=== PATIENT | female | born 1995 | race Caucasian/White ===

== ENCOUNTER → 2023-02-15 16:42 | Outpatient (BNVA) | payer SELFPAY | PROVIDERS: PCP Nurse Practitioner Family; Visit Provider Nurse Practitioner Family | DX: Z96.642 Presence of left artificial hip joint (principal); T81.49XA Infection following a procedure, other surgical site, initial encounter; Y83.8 Other surgical procedures as the cause of abnormal reaction of the patient, or of later complication, without mention of misadventure at the time of the procedure | CPT/HCPCS: 87070; 87075; 87077; 87184; 87205 ==

== ENCOUNTER 2023-02-16 14:03 | Emergency (ER) | payer SELFPAY ==
[2023-02-16] VITALS (14 sets, daily range): BP systolic 116–137; BP diastolic 72–93; PULSE 53–77; RESP 15–17; TEMP 36.4–36.6; O2SAT 92–100; BMI 30.1
--- NOTE | 2023-02-16 14:15 | CT_ITS ---
WS: [id number] TECHNIQUE: with coronal and sagittal reformatted images. CLINICAL INFORMATION: postop wound infection COMPARISON: None. DLP: 450.[address] scans at [facility] use at least one of these dose optimization techniques: automated e xposure control; mA and/or kV adjustment per patient size (includes targeted exams where dose is matc hed to clinical indication); or iterative reconstruction. FINDINGS: No prior imaging or preoperative imaging available Extensive postoperative changes LEFT acetabular repair with LEFT NERY. Comminuted healing fracture wit h callus formation involving the LEFT superior and inferior pubic rami. Slightly enlarged reactive LE FT inguinal lymph nodes. Fluid with mineralization along the surgical corridor and left hip soft tiss ues. Associated peripheral mineralization. Findings may be due to postoperative seroma versus infecti on. Grade 1 anterolisthesis L5 on S1 chronic spondylolysis. Endplate erosive changes L5-S1 may be degener ative or due to prior discitis. Severe bilateral foraminal narrowing. IMPRESSION: 1. Previous postoperative changes complex LEFT acetabular repair with LEFT NERY. 2. Comminuted healing superior-inferior pubic rami fractures with callus formation. 3. Low-attenuation fluid collection in the LEFT hip soft tissues and about the greater trochanter wi th thick walled capsule and calcifications along the surgical tract may represent postoperative serom a versus superimposed infection. 4. Few slightly prominent likely reactive LEFT inguinal lymph nodes. Notified Dr Sandra 4at 02/16/2023 3:29 PM.
--- NOTE | 2023-02-16 14:19 | ECG_ITS ---
[facility] Test Date: 2023-02-16 Pat Name: Crystal Finney Department: Room: Gender: Female Internal Communications Intern: : 1995 Requested By: Ezra Campbell Order Number: [id number] Huma MD: Joce Macario M.D. Measurements Intervals [place] Rate: 89 P: 60 MO: 119 QRS: 134 QRSD: 90 T: 39 QT: 404 QTc: 493 Interpretive Statements SINUS RHYTHM WITH SHORT MO INTERVAL RIGHT AXIS DEVIATION [QRS AXIS > 100] No previous ECG available for comparison Electronically Signed On 02-17-2023 7:59:46 CDT by Joce Macario M.D. [id number]
--- NOTE | 2023-02-16 14:21 | ED_ITS ---
Documented by User: He Sandra DO 02/16/23 18:12 HPI - General Adult General: Chief complaint: General Medical Stated complaint: n/v, hip surgery 3weeks ago Time Seen by Provider: 02/16/23 14:05 [facility] ED [facility]: Medical History (Updated 02/16/23 @ 18:12 by He Sandra DO) Neurogenic bladder Spina bifida Surgical History (Updated 02/16/23 @ 18:12 by He Sandra DO) H/O Spinal surgery History of foot surgery History of left hip replacement August 2022 Social History Smoking and tobacco status: current every day smoker e-cigarettes E-Cigarette Details: vaporizer device and with nicotine Second hand smoke exposure: Yes Alcohol intake: never Substance/Drug Use: current Substance/Drug use frequency: daily Course Vital Signs: Vital signs: Vital Signs Temperature 97.8 F 02/16/23 17:56 Pulse Rate 56 L 02/16/23 17:54 Respiratory Rate 17 02/16/23 14:04 Blood Pressure 126/79 02/16/23 17:54 Pulse Oximetry 100 02/16/23 17:54 Oxygen Delivery Me thod Room Air 02/16/23 17:54 MDM - General Adult Medical Decision Making Vitals are stable here. Patient is afebrile. White blood cell count is 18. 88% neutrophils. Lactic is normal at 2. CRP is only 11.7 but sed rate is significantly elevated at 57. CT of the left hip is pending. Patient has received morphine, Zofran, IV fluid. The patient is also received IV Zosyn and vancomycin after blood cultures. I have spoken with our orthopedic surgeon. This patient has a complex hip arthroplasty with acetabular cage placement. There is concern over complication with the surgery such that if hardware revision were to be needed, pelvic involvement could be an issue. Suggestion is made for university level reconstructive/pelvic orthopedics. I spoke with the team at [facility]. They are willing to take in transfer. This patient is medically stable at this point. No more vomiting here. She is mildly nauseated. She has gotten pain medication and antiemetic here. We will have her set up for ground transfer when a bed at [facility] is available. Lab Data 02/16/23 14:20 02/16/23 14:20 Laboratory Results WBC 17.91 10^3/uL (3.29-11.43) H 02/16/23 14:20 RBC 4.87 10^6/uL (3.85-5.65) 02/16/23 14:20 Hgb 12.20 g/dL (11.27-16.99) 02/16/23 14:20 Hct 38.5 % (36-47) 02/16/23 14:20 MCV 79.1 fl (85-98) L 02/16/23 14:20 MCH 25.1 pg (27-33) L 02/16/23 14:20 MCHC 31.7 g/dL (30-55) 02/16/23 14:20 RDW 18.2 % (12.1-15.1) H 02/16/23 14:20 Plt Count 917 10^3/cmm (157-399) H 02/16/23 14:20 MPV 8.2 fL (7.4-10.4) 02/16/23 14:20 Neut % (Auto) 87.6 % 02/16/23 14:20 Lymph % (Auto) 9.3 % 02/16/23 14:20 [place] % (Auto) 2.0 % 02/16/23 14:20 Eos % (Auto) 0.1 % 02/16/23 14:20 Baso % (Auto) 0.6 % 02/16/23 14:20 Neut # (Auto) 15.70 10^3/uL (1.8-7.7) H 02/16/23 14:20 Lymph # (Auto) 1.7 10^3/uL (0.8-4.8) 02/16/23 14:20 [place] # (Auto) 0.4 10^3/uL (0.2-0.9) 02/16/23 14:20 Eos # (Auto) 0.0 10^3/uL (0.0-0.8) 02/16/23 14:20 Baso # (Auto) 0.1 10^3/uL (0.0-0.1) 02/16/23 14:20 Nucleated RBC % (auto) 0 % 02/16/23 14:20 Nucleated RBCs # 0.0 /100WBC 02/16/23 14:20 ESR 57 mm/hr (0-15) H 02/16/23 14:20 Sodium 136 mmol/L (136-145) 02/16/23 14:20 Potassium 3.9 mmol/L (3.5-5.1) 02/16/23 14:20 Chloride 102 mmol/L (98-107) 02/16/23 14:20 Carbon Dioxide 19 mmol/L (22-29) L 02/16/23 14:20 Anion Gap 18.9 (5-19) 02/16/23 14:20 BUN 8 mg/dL (6-20) 02/16/23 14:20 Creatinine 0.6 mg/dL (0.5-0.9) 02/16/23 14:20 GFR Calculation 119.9 mL/min (90-130) 02/16/23 14:20 Glucose 155 mg/dL (65-115) H 02/16/23 14:20 Calculated Osmolality 283 mOsm/kg (285-295) L 02/16/23 14:20 Lactic Acid 2.1 mmol/L (0.5-2.2) 02/16/23 14:20 Lactic Acid (Sepsis) 2.1 mmol/L (0.5-2.2) 02/16/23 17:24 Calcium 9.4 mg/dL (8.5-10.5) 02/16/23 14:20 Total Bilirubin 0.5 mg/dL (0.15-1.2) 02/16/23 14:20 AST 13 U/L (0-32) 02/16/23 14:20 ALT 8 U/L (0-33) 02/16/23 14:20 Alkaline Phosphatase 150 U/L (35-105) H 02/16/23 14:20 C-Reactive Protein 11.7 mg/L (0.0-4.9) H 02/16/23 14:20 Total Protein 8.0 g/dL (6.6-8.7) 02/16/23 14:20 Albumin 4.1 g/dL (3.5-5.2) 02/16/23 14:20 Globulin 3.9 g/dL (1.3-4.6) 02/16/23 14:20 All radiology interpretation(s) finalized by discharge Discharge Plan Discharge Patient Disposition: Xfer Short-Term Hosp Clinical Impression: Surgical site infection, History of left hip replacement Condition: Fair Prescriptions: No Action buspirone 5 mg tablet 5 mg PO BID hydroxyzine pamoate 50 mg capsule 50 mg PO DAILY gabapentin 300 mg capsule 900 mg PO TID sulfamethoxazole-trimethoprim [Bactrim DS] 800-160 mg tablet 1 tab PO BID 10 Days Qty: 20 0RF Referrals: Scarlet Lara FNP [Primary Care Provider] - Coding Level of Care Code ED Feather Stitcher for Chg Fwd Documented by User: [email or web address] Schuler 02/16/23 14:35 HPI - General Adult General: Chief complaint: General Medical Stated complaint: n/v, hip surgery 3weeks ago Time Seen by Provider: 02/16/23 14:05 Source: patient Mode of arrival: wheelchair Limitations: physical limitation History of Present Illness: Patient is a 27 year old female who presents to the ED with Left hip pain, weakness, chills, and fever. Patient reports that she under went hip surgery back in August 2022 in [place] from a fall. Patient states there have been complications from the surgery and her last revision of the left hip occured around 3 weeks ago. Patient report recent visit yesterday to here nearest clinic and was placed on Sulfa. Reports fever, n/v, chills, and increased left hip pain started this am. Denies and alleviating factors but states moving around and ROM as aggravating factors. Rates pain a 10/10 on pain scale. Denies chest pain. Reports shortness of breath. MD complaint: 3 Onset (ago): week(s) Location: left (HIP) Radiation: non-radiation Severity: severe Severity scale (1-10): 10 Relieving factors: none Exacerbating factors: movement Associated symptoms: Reports diaphoresis, dyspnea, fevers/chills, malaise, nausea, short of breath, vomiting and weakness; Deny chest pain, headache(s) or palpitations Treatments prior to arrival: none Review of Systems Const: Reports: fever(s), chills, body aches, change in appetite, fatigue, malaise and diaphoresis Eyes: Denies: change in vision or blurry vision ENMT: Denies: throat pain or enlarged tonsils Card: Reports: edema (Left Hip); Denies: chest pain or palpitations Resp: Reports: dyspnea and non-productive cough; Denies: pain on inspiration GI: Reports: abdominal pain, nausea and vomiting; Denies: hematemesis or dysphagia : Denies: flank pain or difficulty voiding Musc: Reports: limited range of motion; Denies: neck pain or back pain Skin/Breast: Reports: erythema (Left Hip), skin swelling and surgical incision; Denies: pruritus Neuro: Reports: dizziness; Denies: headache(s) or numbness in extremities PFSH ED PFSH: Medical History (Updated 02/16/23 @ 18:12 by He Sandra DO) Neurogenic bladder Spina bifida Surgical History (Updated 02/16/23 @ 18:12 by He Sandra DO) H/O Spinal surgery History of foot surgery History of left hip replacement August 2022 Social History Smoking and tobacco status: current every day smoker e-cigarettes E-Cigarette Details: vaporizer device and with nicotine Second hand smoke exposure: Yes Alcohol intake: never Substance/Drug Use: current Substance/Drug use frequency: daily Physical Exam Const: COMMON NORMALS: patient oriented x3 and no limitations; negative for healthy appearing GENERAL APPEARANCE: in distress, anxious and frail appearing ORIENTATION/CONSCIOUSNESS: Yes awake, Yes oriented to person, Yes oriented to place and Yes oriented to time HENMT: COMMON NORMALS: normocephalic HEAD & SCALP: normal to inspection and normocephalic Eye: COMMON NORMALS: Equal, round and reactive pupils present and EOMs intact bilaterally PUPIL: Yes Equal, round and reactive pupils present Neck/C-Spine: COMMON NORMALS: full ROM, no lymphadenopathy and no JVD Lymph: LYMPHATIC: no lymphadenopathy noted Chest: CHEST: Yes Symmetrical chest wall rise Resp: COMMON NORMALS: normal respiratory effort, No retractions and No use of accessory muscles Cardio: COMMON NORMALS: no JVD, S1 normal heart sound present and S2 normal heart sound present HEART SOUNDS: S1 normal heart sound present and S2 normal heart sound present GI: COMMON NORMALS: Normal to inspection, nondistended, normoactive bowel sounds present and Soft to palpation AUSCULTATION: Yes normoactive bowel sounds PALPATION: Yes Soft to palpation : MANUAL OB EXAM: Deferred manual OB exam Extremity: LEFT LOWER EXTREMITY: Yes hip joint (surgical incision - red, swollen, purulent drainage) Left hip: Yes inspection Neuro: COMMON NORMALS: patient oriented x3 SENSORIUM/ORIENTATION: Yes oriented to person, Yes oriented to place and Yes oriented to time Course Vital Signs: Vital signs: Vital Signs Temperature 97.8 F 02/16/23 17:56 Pulse Rate 56 L 02/16/23 17:54 Respiratory Rate 17 02/16/23 14:04 Blood Pressure 126/79 02/16/23 17:54 Pulse Oximetry 100 02/16/23 17:54 Oxygen Delivery Me thod Room Air 02/16/23 17:54 MDM - General Adult Lab Data 02/16/23 14:20 02/16/23 14:20 Laboratory Results WBC 17.91 10^3/uL (3.29-11.43) H 02/16/23 14:20 RBC 4.87 10^6/uL (3.85-5.65) 02/16/23 14:20 Hgb 12.20 g/dL (11.27-16.99) 02/16/23 14:20 Hct 38.5 % (36-47) 02/16/23 14:20 MCV 79.1 fl (85-98) L 02/16/23 14:20 MCH 25.1 pg (27-33) L 02/16/23 14:20 MCHC 31.7 g/dL (30-55) 02/16/23 14:20 RDW 18.2 % (12.1-15.1) H 02/16/23 14:20 Plt Count 917 10^3/cmm (157-399) H 02/16/23 14:20 MPV 8.2 fL (7.4-10.4) 02/16/23 14:20 Neut % (Auto) 87.6 % 02/16/23 14:20 Lymph % (Auto) 9.3 % 02/16/23 14:20 [place] % (Auto) 2.0 % 02/16/23 14:20 Eos % (Auto) 0.1 % 02/16/23 14:20 Baso % (Auto) 0.6 % 02/16/23 14:20 Neut # (Auto) 15.70 10^3/uL (1.8-7.7) H 02/16/23 14:20 Lymph # (Auto) 1.7 10^3/uL (0.8-4.8) 02/16/23 14:20 [place] # (Auto) 0.4 10^3/uL (0.2-0.9) 02/16/23 14:20 Eos # (Auto) 0.0 10^3/uL (0.0-0.8) 02/16/23 14:20 Baso # (Auto) 0.1 10^3/uL (0.0-0.1) 02/16/23 14:20 Nucleated RBC % (auto) 0 % 02/16/23 14:20 Nucleated RBCs # 0.0 /100WBC 02/16/23 14:20 ESR 57 mm/hr (0-15) H 02/16/23 14:20 Sodium 136 mmol/L (136-145) 02/16/23 14:20 Potassium 3.9 mmol/L (3.5-5.1) 02/16/23 14:20 Chloride 102 mmol/L (98-107) 02/16/23 14:20 Carbon Dioxide 19 mmol/L (22-29) L 02/16/23 14:20 Anion Gap 18.9 (5-19) 02/16/23 14:20 BUN 8 mg/dL (6-20) 02/16/23 14:20 Creatinine 0.6 mg/dL (0.5-0.9) 02/16/23 14:20 GFR Calculation 119.9 mL/min (90-130) 02/16/23 14:20 Glucose 155 mg/dL (65-115) H 02/16/23 14:20 Calculated Osmolality 283 mOsm/kg (285-295) L 02/16/23 14:20 Lactic Acid 2.1 mmol/L (0.5-2.2) 02/16/23 14:20 Lactic Acid (Sepsis) 2.1 mmol/L (0.5-2.2) 02/16/23 17:24 Calcium 9.4 mg/dL (8.5-10.5) 02/16/23 14:20 Total Bilirubin 0.5 mg/dL (0.15-1.2) 02/16/23 14:20 AST 13 U/L (0-32) 02/16/23 14:20 ALT 8 U/L (0-33) 02/16/23 14:20 Alkaline Phosphatase 150 U/L (35-105) H 02/16/23 14:20 C-Reactive Protein 11.7 mg/L (0.0-4.9) H 02/16/23 14:20 Total Protein 8.0 g/dL (6.6-8.7) 02/16/23 14:20 Albumin 4.1 g/dL (3.5-5.2) 02/16/23 14:20 Globulin 3.9 g/dL (1.3-4.6) 02/16/23 14:20 Discharge Plan Discharge Patient Disposition: Xfer Short-Term Hosp Clinical Impression: Surgical site infection, History of left hip replacement Condition: Fair Prescriptions: No Action buspirone 5 mg tablet 5 mg PO BID hydroxyzine pamoate 50 mg capsule 50 mg PO DAILY gabapentin 300 mg capsule 900 mg PO TID sulfamethoxazole-trimethoprim [Bactrim DS] 800-160 mg tablet 1 tab PO BID 10 Days Qty: 20 0RF Referrals: Scarlet Lara FNP [Primary Care Provider] - Coding Level of Care Code ED Feather Stitcher for Pooja Sapp
[2023-02-16] MEDS: morphine 4 mg/mL SDV 1 mL IVP ×2 (14:30→15:58)
[2023-02-16] MEDS: ondansetron 2 mg/ML SDV 2 mL 4 MG IVP ×2 (14:30→15:58)
[2023-02-16] MEDS: sodium chloride 0.9% 1,000 ML 999 ML IV (14:30)
[2023-02-16 14:33] LABS: Basophils # 0.1 10^3/uL (0.0-0.1); Basophils % 0.6 %; Eosinophils % 0.1 %; Hematocrit 38.5 % (36-47); Lymphocytes # 1.7 10^3/uL (0.8-4.8); Lymphocytes % 9.3 %; Mean Corpuscular HGB Conc 31.7 g/dL (30-55); Mean Corpuscular Hemoglobin 25.1 pg (27-33); Mean Corpuscular Volume 79.1 fl (85-98); Mean Platelet Volume 8.2 fL (7.4-10.4); Monocytes # 0.4 10^3/uL (0.2-0.9); Neutrophils % 87.6 %; Nucleated Red Blood Cells % 0 %; Platelet Count 917 10^3/cmm (157-399); Red Blood Count 4.87 10^6/uL (3.85-5.65); Red Cell Distribution Width 18.2 % (12.1-15.1); White Blood Count 17.91 10^3/uL (3.29-11.43)
[2023-02-16 14:35] LABS: Erythrocyte Sedimentation Rate 57 mm/hr (0-15)
--- NOTE | 2023-02-16 14:40 | PC.PHAR ---
Addendum entered by Scarlet Hardy 02/16/23 14:42: EXTERNAL MED LIST SHOWS ALL 4 MEDICATIONS, STRENGTH AND DOSAGE Original Note: PT STATES THESE 4 MEDICATIONS ARE ALL SHE TAKES. SHE JUST MOVED HERE FROM [place]. NO PHARMACY ESTABLISHED YET
[2023-02-16 14:53] LABS: Alanine Aminotransferase 8 U/L (0-33); Albumin Level 4.1 g/dL (3.5-5.2); Alkaline Phosphatase 150 U/L (35-105); Anion Gap 18.9 (5-19); Aspartate Amino Transferase 13 U/L (0-32); Blood Urea Nitrogen 8 mg/dL (6-20); C Reactive Protein 11.7 mg/L (0.0-4.9); Calcium 9.4 mg/dL (8.5-10.5); Carbon Dioxide 19 mmol/L (22-29); Chloride 102 mmol/L (98-107); Globulin 3.9 g/dL (1.3-4.6); Glomerular Filtration Rate 119.9 mL/min (90-130); Glucose 155 mg/dL (65-115); Osmolality Calculated 283 mOsm/kg (285-295); Potassium 3.9 mmol/L (3.5-5.1); Sodium 136 mmol/L (136-145); Total Bilirubin 0.5 mg/dL (0.15-1.2)
[2023-02-16 14:54] LABS: Lactic Sepsis W/Reflex 2.1 mmol/L (0.5-2.2)
[2023-02-16] MEDS: iohexol 350 mg/mL 500 mL Btl (per mL) IV (15:06)
[2023-02-16 16:15] LABS: Reflex Lactate Order REFLEX LACTIC ORDERD
[2023-02-16] MEDS: piperacillin-tazobactam 4.5 GM in sodium chloride 0.9% (plus) 50 ML IV (16:33)
[2023-02-16] MEDS: vancomycin 1,250 MG/250 ML PIGGYBACK 250 MG IV (17:45)
[2023-02-16] MEDS: promethazine 25 mg/mL SDV 1 mL 50 MG IM ×2 (17:46→21:44)
[2023-02-16 17:48] LABS: Lactic Acid level (Lactate) 2.1 mmol/L (0.5-2.2)
--- NOTE | 2023-02-16 22:31 | PC.NURSE ---
[facility] called for pt status update. No beds available at this time
[2023-02-17] VITALS (68 sets, daily range): BP systolic 98–146; BP diastolic 59–103; PULSE 66–107; RESP 7–31; O2SAT 77–100
[2023-02-17] MEDS: LORazepam 2 mg/mL INJ 1 mL 1 MG IVP ×2 (01:49→15:10)
[2023-02-17] MEDS: morphine 4 mg/mL SDV 1 mL IVP ×2 (05:18→07:21)
[2023-02-17] MEDS: piperacillin-tazobactam 3.375 GM in sodium chloride 0.9% (plus) 50 ML IV (06:15)
[2023-02-17] MEDS: vancomycin 1,000 MG in sodium chloride 0.9% 250 ML 250 MG IV ×3 (07:18→22:35)
[2023-02-17 12:19] LABS: Basophils # 0.1 10^3/uL (0.0-0.1); Eosinophils % 0.1 %; Hematocrit 36.4 % (36-47); Lymphocytes % 24.3 %; Mean Corpuscular HGB Conc 31.3 g/dL (30-55); Mean Corpuscular Hemoglobin 25.6 pg (27-33); Mean Corpuscular Volume 81.8 fl (85-98); Mean Platelet Volume 8.2 fL (7.4-10.4); Monocytes # 0.4 10^3/uL (0.2-0.9); Monocytes % 4.6 %; Neutrophils # 5.63 10^3/uL (1.8-7.7); Neutrophils % 69.8 %; Nucleated Red Blood Cells % 0 %; Platelet Count 690 10^3/cmm (157-399); Red Blood Count 4.45 10^6/uL (3.85-5.65); Red Cell Distribution Width 18.6 % (12.1-15.1); White Blood Count 8.07 10^3/uL (3.29-11.43)
[2023-02-17 12:30] LABS: Erythrocyte Sedimentation Rate 56 mm/hr (0-15)
[2023-02-17] MEDS: acetaminophen 500 mg Tablet PO ×3 (15:09→23:50)
[2023-02-17] MEDS: hyDROXYzine 25 mg Capsule 50 MG PO (15:09)
[2023-02-17] MEDS: ketorolac 30 mg/mL INJ 15 MG IVP (15:10)
[2023-02-17] MEDS: morphine IR 15 mg Tablet PO (22:56)
[2023-02-17] MEDS: ondansetron 2 mg/ML SDV 2 mL 4 MG IVP (22:56)
[2023-02-18] VITALS (10 sets, daily range): BP systolic 106–131; BP diastolic 61–80; PULSE 59–113; RESP 16–22; O2SAT 94–100
[2023-02-18] MEDS: trazodone 50 mg Tablet PO (00:16)
[2023-02-18] MEDS: morphine IR 15 mg Tablet PO ×4 (04:10→16:40)
[2023-02-18 06:00] LABS: Vancomycin Trough 24.7 ug/mL (10-15)
[2023-02-18 06:22] LABS: Basophils # 0.1 10^3/uL (0.0-0.1); Basophils % 1.5 %; Eosinophils % 0.7 %; Hematocrit 34.5 % (36-47); Lymphocytes # 1.9 10^3/uL (0.8-4.8); Lymphocytes % 34.9 %; Mean Corpuscular HGB Conc 31.3 g/dL (30-55); Mean Corpuscular Hemoglobin 25.5 pg (27-33); Mean Corpuscular Volume 81.6 fl (85-98); Mean Platelet Volume 8.3 fL (7.4-10.4); Monocytes # 0.3 10^3/uL (0.2-0.9); Monocytes % 5.6 %; Neutrophils # 3.13 10^3/uL (1.8-7.7); Neutrophils % 56.9 %; Nucleated Red Blood Cells % 0 %; Platelet Count 556 10^3/cmm (157-399); Red Blood Count 4.23 10^6/uL (3.85-5.65); Red Cell Distribution Width 18.4 % (12.1-15.1)
[2023-02-18] MEDS: acetaminophen 500 mg Tablet PO ×4 (06:23→15:23)
[2023-02-18] MEDS: ondansetron 2 mg/ML SDV 2 mL 4 MG IVP ×2 (06:23→13:29)
[2023-02-18 06:25] LABS: Blood Urea Nitrogen 9 mg/dL (6-20); Calcium 8.5 mg/dL (8.5-10.5); Carbon Dioxide 21 mmol/L (22-29); Chloride 103 mmol/L (98-107); Glomerular Filtration Rate 119.9 mL/min (90-130); Glucose 85 mg/dL (65-115); Osmolality Calculated 282 mOsm/kg (285-295); Sodium 137 mmol/L (136-145)
[2023-02-18 06:40] LABS: Erythrocyte Sedimentation Rate 33 mm/hr (0-15)
--- NOTE | 2023-02-18 07:00 | DCPLANNER ---
[facility] called back at 0659 advised they have no beds at this time.
--- NOTE | 2023-02-18 07:03 | DCPLANNER ---
[facility] ([facility] bed hold ( no beds) at 0705
--- NOTE | 2023-02-18 07:32 | PC.NURSE ---
pt resting in room 15, in no acute distress at this time. pt verbalized all needs met at this time.
--- NOTE | 2023-02-18 08:41 | PC.NURSE ---
this nurse gave pt latex free lowe catheter for self-catheterization, pt verbalized no acute needs at this time.
[2023-02-18] MEDS: piperacillin-tazobactam 3.375 GM in sodium chloride 0.9% (plus) 50 ML IV (09:22)
--- NOTE | 2023-02-18 10:05 | PM.CONSULT ---
Providers/Reason For Consult Consulting Physician/Specialty*: Adriano Mauricio MD, hospitalist Reason for Consult*: Infected hip Primary Care Provider: JOSH Todd History of Present Illness History of Present Illness Crystal Finney is a 27 year old female who presented to the emergency department complaining of drainage from her left hip. She states she had surgery in August, secondary to hip/acetabular fracture. She reports issues with dislocation and had 2 subsequent surgeries following this. This was in [place]. She was seen by primary care on the for concerns of drainage from the hip and was placed on Bactrim. She then had nausea, vomiting, fever, chills, sweats and presented to the ER on the . She was found to have an erythematous draining surgical site on her left hip with some breakdown of the incision site distally. She was placed on vancomycin and Zosyn, and vancomycin was continued during the days in the emergency department. She reports she feels better, she has less drainage from her hip, she has no chills, nausea vomiting, or fever. Review of Systems General: Reports: 10 or more systems reviewed and unremarkable except in HPI and below Card: Denies: chest pain Resp: Denies: dyspnea GI: Reports: nausea and vomiting; Denies: abdominal pain Medications/Allergies Home Medications Medication Instructions Recorded Confirmed Last Taken Type buspirone 5 mg tablet 5 mg PO BID 02/15/23 02/16/23 Unknown History gabapentin 300 mg capsule 900 mg PO TID 02/15/23 02/16/23 Unknown History hydroxyzine pamoate 50 mg capsule 50 mg PO DAILY 02/15/23 02/16/23 Unknown History sulfamethoxazole 800 1 tab PO BID 10 days #20 tabs 02/15/23 02/16/23 Unknown Rx mg-trimethoprim 160 mg tablet (Bactrim DS) Allergies Allergy/AdvReac Type Severity Reaction Status Date / Time Latex, Natural Rubber Allergy Intermediate ALGY-Hives Verified 02/15/23 14:22 Current Medications Generic Name Dose Route Start Last Admin Trade Name Freq PRN Reason Stop Dose Admin Acetaminophen 500 mg 02/17/23 15:30 02/18/23 07:31 Acetaminophen 500 Mg Tablet PO 500 mg Q4H PATO Administration Piperacillin Sod/Tazobactam 50 mls @ 12.5 mls/hr 02/18/23 09:15 02/18/23 09:22 Sod 3.375 gm/ Sodium Chloride IV 12.5 mls/hr Q8H PATO Administration Protocol As Directed Morphine Sulfate 15 mg 02/17/23 15:01 02/18/23 08:33 Morphine Ir 15 Mg Tablet PO 15 mg Q4H PRN Administration moderate PAIN Ondansetron HCl 4 mg 02/17/23 21:55 02/18/23 06:23 Ondansetron 2 Mg/Ml Sdv 2 Ml IVP 4 mg Q6H PRN Administration NAUSEA PFSH Acute PFSH: Medical History Neurogenic bladder Spina bifida Surgical History H/O Spinal surgery History of foot surgery History of left hip replacement August 2022 Family History (Updated 02/18/23 @ 10:08 by Adriano Mauricio MD) Other Psychiatric illness Social History Smoking and tobacco status: current every day smoker e-cigarettes E-Cigarette Details: vaporizer device and with nicotine Second hand smoke exposure: Yes Alcohol intake: never Substance/Drug Use: current Substance/Drug use frequency: daily Other PFSH information: Supplemental PFSH Information: Reports multiple surgeries in the past on her left leg and foot, tethered cord, x2, thumb. 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 Vitals/I&O/Wt Last Vital Signs Temp 97.8 F 02/16/23 17:56 Pulse 86 02/18/23 07:08 Resp 16 02/18/23 08:33 BP 118/73 02/18/23 07:08 Pulse Ox 100 02/18/23 08:33 O2 Del Method Room Air 02/18/23 07:08 02/17/23 02/18/23 02/18/23 22:59 06:59 14:59 Intake Total 250 / 550 250 / 800 Balance 250 / 550 250 / 800 Weight last 48 hrs Weight 77.111 kg Physical Exam Narrative: General exam demonstrates a conversant and pleasant female, reporting no distress currently. HEENT: Atraumatic normocephalic. Oropharynx clear Neck is supple no lymphadenopathy thyromegaly Cardiovascular regular rate and rhythm, no murmur Lungs clear Abdomen is soft, nontender Extremities no cyanosis clubbing. Surgical scarring noted left lower extremity, cap refill excellent. Incision site noted left hip area, sutures still present, with some wound breakdown distally. There is erythema around the incision site. No active drainage. Data 02/18/23 06:15 02/18/23 05:30 Other Labs: For MRLactic acid on admission, LFTs largely normal with exception of alk phos of 150. Grades were elevated with CRP of 11.7 and sedimentation rate of [address] demonstrated postoperative changes left acetabular repair and total hip arthroplasty. Healing of superior inferior pubic rami fractures were also noted. Thick walled capsule by greater trochanter, question infection versus seroma with some prominent likely reactive left inguinal lymph nodes. I reviewed this study as well. Cultures of hip, growing gram-negative rods. Blood cultures negative. EKG which I reviewed demonstrates sinus rhythm, normal axis, normal EKG Micro: Microbiology 02/17/23 12:28 Gram Stain - Final Hip - #1 02/16/23 14:30 Blood Culture - Preliminary Blood NEGATIVE TO DATE 02/16/23 14:20 Blood Culture - Preliminary Blood NEGATIVE TO DATE A&P Assessment and plan (1) Surgical site infection: Patient with surgical site infection, left hip. This appears to have been a significantly complicated repair of her acetabulum with total hip arthroplasty. Culture from the site is growing gram-negative rods. Patient has history of MRSA. Agree with transfer to tertiary care center. Continue vancomycin currently. Restart Zosyn secondary to gram-negative rods. May continue her chronic medications of gabapentin and buspirone Continue to follow blood cultures As gram-negative organism is growing from her wound we will also check UA with micro, culture if appropriate Check hCG, serum, blood in lab Plan History of spina bifida with neurogenic bladder Initiate Lovenox for DVT prophylaxis. SCDs Thank you for this consultation Consult Attestations Medical Necessity Statement: Not applicable Diagnoses Surgical site infection T81.49XA Time Spent (min) 50
--- NOTE | 2023-02-18 10:20 | DCPLANNER ---
I called [facility] at 10:19 am and spoke with Danica to check the bed status on this patient. Danica said patient is still on the wait list for an ortho bed.
[2023-02-18 10:27] LABS: HCG, Serum Qual Negative (Negative)
[2023-02-18 12:48] LABS: Bacteria Urine 3+ /hpf; Bilirubin Urine Neg (Negative); Blood Urine Neg (Negative); Glucose Urine UA Norm (Normal); Ketones Urine 1+ (Negative); Leukocyte Esterase Urine Negative (Negative); Mucus Urine TRACE /hpf; Nitrate Urine Negative (Negative); Protein Urine Neg (Negative); RBC Urine 0-4 /hpf (0-2); Specific Gravity, Urine 1.025 (1.005-1.030); Squamous Epithelial Cell Urine 25-40 /hpf (0-5); Urine Appearance Cloudy (CLEAR); Urine Color Yellow (Yellow); Urobilinogen Urine Norm (Negative); WBC Urine 0-4 /hpf (0-5); pH Urine 5 (5-7)
--- NOTE | 2023-02-18 12:48 | PC.NURSE ---
pt resting in room in no acute distress at this time, pt verbalized no new needs
[2023-02-18 12:49] LABS: Add Urine Culture? No
--- NOTE | 2023-02-18 13:23 | DCPLANNER ---
I called Dorie at [facility] in [place], [place] at 1323 to see if they have beds available. Dorie advised at this time they are full and the patient would need to be put on a waitlist and Dorie was unsure when it would be for a bed if we wanted to proceed.
--- NOTE | 2023-02-18 13:36 | PC.NURSE ---
pt resting in hospital bed in no acute distress at this time, pt verbalized all needs met at this time
[2023-02-18] MEDS: LORazepam 2 mg Tablet PO (15:23)
[2023-02-18] MEDS: gabapentin 300 mg Capsule 900 MG PO (15:24)
--- NOTE | 2023-02-18 16:15 | P.CONIM_ITS ---
Providers/Reason For Consult Consulting Physician/Specialty*: Valerie Mcelroy MD Reason for Consult*: Infected left total hip arthroplasty Requesting Physician: Dr. Enio De La Cruz Primary Care Provider: JOSH Todd History of Present Illness History of Present Illness Crystal Finney is a 27 year old female who presented to the emergency department complaining of left hip pain, chills, fever, and weakness. Although history has very slightly, in August 2022, the patient had a fall onto her left hip from a standing position. She states she shattered her femoral head , and for that, she received a total hip arthroplasty. [place]. She went to the emergency department, and she noted that this hip could not be reduced without an arthrotomy. This was performed. Subsequent to that, the patient had a dislocation once again, and onset approximately February 01, the patient underwent further hip surgery in [place]. Secondary to family issues, the patient moved here where she had a better support system. She then started to develop the symptoms above approximately 3 to 4 days ago. She came to our emergency department for further evaluation. We were contacted concerning appropriate care. Medications/Allergies Home Medications Medication Instructions Recorded Confirmed Last Taken Type buspirone 5 mg tablet 5 mg PO BID 02/15/23 02/16/23 Unknown History gabapentin 300 mg capsule 900 mg PO TID 02/15/23 02/16/23 Unknown History hydroxyzine pamoate 50 mg capsule 50 mg PO DAILY 02/15/23 02/16/23 Unknown History sulfamethoxazole 800 1 tab PO BID 10 days #20 tabs 02/15/23 02/16/23 Unknown Rx mg-trimethoprim 160 mg tablet (Bactrim DS) Allergies Allergy/AdvReac Type Severity Reaction Status Date / Time Latex, Natural Rubber Allergy Intermediate ALGY-Hives Verified 02/15/23 14:22 Current Medications Generic Name Dose Route Start Last Admin Trade Name Freq PRN Reason Stop Dose Admin Acetaminophen 500 mg 02/17/23 15:30 02/18/23 15:23 Acetaminophen 500 Mg Tablet PO 500 mg Q4H PATO Administration Enoxaparin Sodium 40 mg 02/18/23 11:00 02/18/23 11:25 Enoxaparin 40 Mg/0.4 Ml Syringe SUBCUT Not Given Q24H [facility] Gabapentin 900 mg 02/18/23 15:00 02/18/23 15:24 Gabapentin 300 Mg Capsule PO 900 mg TID PATO Administration Piperacillin Sod/Tazobactam 50 mls @ 12.5 mls/hr 02/18/23 09:15 02/18/23 12:10 Sod 3.375 gm/ Sodium Chloride IV Infused Q8H PATO Infusion Protocol As Directed Morphine Sulfate 15 mg 02/17/23 15:01 02/18/23 13:29 Morphine Ir 15 Mg Tablet PO 15 mg Q4H PRN Administration moderate PAIN Ondansetron HCl 4 mg 02/17/23 21:55 02/18/23 13:29 Ondansetron 2 Mg/Ml Sdv 2 Ml IVP 4 mg Q6H PRN Administration NAUSEA PFSH Acute PFSH: Medical History Neurogenic bladder Spina bifida Surgical History H/O Spinal surgery History of foot surgery History of left hip replacement August 2022 Family History (Updated 02/18/23 @ 10:08 by Adriano Mauricio MD) Other Psychiatric illness Social History Smoking and tobacco status: current every day smoker e-cigarettes E-Cigarette Details: vaporizer device and with nicotine Second hand smoke exposure: Yes Alcohol intake: never Substance/Drug Use: current Substance/Drug use frequency: daily Vitals/I&O/Wt Last Vital Signs Temp 97.8 F 02/16/23 17:56 Pulse 59 L 02/18/23 13:31 Resp 16 02/18/23 13:31 BP 108/61 02/18/23 13:31 Pulse Ox 98 02/18/23 13:31 O2 Del Method Room Air 02/18/23 13:31 02/18/23 02/18/23 02/18/23 06:59 14:59 22:59 Intake Total 250 / 800 50 / 50 Balance 250 / 800 50 / 50 Physical Exam Const: COMMON NORMALS: no acute distress, average body habitus, patient oriented x3, no limitations, healthy appearing, alert and well nourished GENERAL APPEARANCE: cooperative; not anxious and not combative ORIENTATION/CONSCIOUSNESS: Yes awake, Yes oriented to person, Yes oriented to place and Yes oriented to time HENMT: COMMON NORMALS: normocephalic and atraumatic HEAD & SCALP: normocephalic and atraumatic Eye: GENERAL EYE: appearance normal, both eyes and all related structures EYELID: eyelids normal Chest: COMMONS NORMALS: normal inspection of the chest Resp: COMMON NORMALS: normal respiratory effort EFFORT & INSPECTION: Yes able to speak in complete sentences and Yes symmetric chest movement Extremity: LEFT LOWER EXTREMITY: Yes hip joint (Incision from recent hip surgery with sutures) Left hip: Yes inspection (Distal incision is opening with drainage), Yes ROM (Pain with range of motion, but patient is able to move hip) and Yes neurovascular exam (Intact distally.) Neuro: COMMON NORMALS: patient oriented x3 SENSORIUM/ORIENTATION: Yes alert, Yes oriented to person, Yes oriented to place and Yes oriented to time SPEECH: speech normal Psych: ATTITUDE: Yes calm and Yes engaged ACTIVITY/MOTOR BEHAVIOR: Yes appropriate eye contact ATTENTION/CONCENTRATION: Yes attention grossly intact MEMORY/COGNITION: Yes memory grossly intact Skin: COMMON NORMALS: no rashes or lesions noted and turgor normal; negative for no jaundice GENERAL SKIN EXAM: no rashes or lesions noted, turgor normal and no jaundice Data 02/18/23 06:15 02/18/23 05:30 Micro: Microbiology 02/17/23 12:28 Gram Stain - Final Hip - #1 02/16/23 14:30 Blood Culture - Preliminary Blood NEGATIVE TO DATE 02/16/23 14:20 Blood Culture - Preliminary Blood NEGATIVE TO DATE Xray Ortho: My impression: While here, the patient had a hip CT. This has been reviewed by me and interpreted. The clinical training specialist image on the CT demonstrates there is a total hip arthroplasty in the left hip. There is hardware that appears to be a cage superior with multiple screws inferior and superior. There appears to be on the CT dissociation of the inner wall of the acetabulum from the acetabular component. There are lucencies around the screws consistent with infection. The hip is well located. A&P Assessment and plan (1) Surgical site infection: This 27-year-old woman obviously has a very complex left hip arthroplasty with subsequent infection. She also has acetabular fracture and failure of this hip arthroplasty. I have reviewed this case with my 2 associates in orthopedics, and we all concur that this is not a problem that we can address here in our organization. We do not have the equipment or support to care for this very unfortunate young woman. I have discussed this with the patient and she understands. She has been awaiting transfer after acceptance to [place]. It is my understanding at the time of my visit that she was accepted in transfer and will be transferring this evening. (2) History of left hip replacement: (3) Spina bifida: Coding Level of Care Code Acute Code for [facility] Diagnoses Surgical site infection T81.49XA History of left hip replacement Z96.642 Spina bifida Q05.9
== END 2023-02-18 17:05 | disposition short-term general hospital (02) ==
PROVIDERS: Emergency Medicine; Internal Medicine; Emergency Provider Family Medicine; PCP Nurse Practitioner Family
DX: T81.41XA Infection following a procedure, superficial incisional surgical site, initial encounter (principal); Z96.642 Presence of left artificial hip joint; F17.290 Nicotine dependence, other tobacco product, uncomplicated; Y83.8 Other surgical procedures as the cause of abnormal reaction of the patient, or of later complication, without mention of misadventure at the time of the procedure
CPT/HCPCS: 36415; 73701; 80048; 80053; 80202; 81001; 83605; 84703; 85025; 85651; 86140; 87040; 87070; 87075; 87077; 87186; 87205; 93005; 96365; 96366; 96367; 96372; 96375; 96376; 99285; 99291; J1885; J2060; J2270; J2405; J2543; J2550; J3370; J7030; J7050; Q9967

== ENCOUNTER 2023-03-05 10:48 | Emergency (ER) | payer MEDICAID, SELFPAY ==
[2023-03-05 10:50] VITALS: BP 117/91; PULSE 106; RESP 16; TEMP 36.6; O2SAT 98
--- NOTE | 2023-03-05 11:01 | W.ED.EXTPRO ---
HPI - Extremity Problem General: Chief complaint: Extremity Injury, Lower Stated complaint: LEFT HIP PAIN Time Seen by Provider: 03/05/23 10:49 History of Present Illness: Patient is a 27-year-old female that presents to the emergency department via EMS. Crystal Finney is a 27 year old female who presented to the emergency department complaining of left hip pain, chills, fever, and weakness.? Although history has very slightly, in August 2022, the patient had a fall onto her left hip from a standing position.? She states she shattered her femoral head , and for that, she received a total hip arthroplasty.? She [place].? She went to the emergency department, and she noted that this hip could not be reduced without an arthrotomy.? This was performed.? Subsequent to that, the patient had a dislocation once again, and onset approximately February 01, the patient underwent further hip surgery in [place].? Secondary to family issues, the patient moved here where she had a better support system.? She then started to develop the symptoms above approximately 3 to 4 days ago.? She came to our emergency department for further evaluation.? We were contacted concerning appropriate care. Dr Valerie Mcelroy JAN 2023 Patient states she originally injured the left hip sometime in late 2021 or early 2022. She has had multiple operative interventions due to repetitive dislocations, loosening hardware, infection. Her most recent surgery was earlier this week. She was discharged home yesterday with a Prevena. The Pravena malfunctioned through the night. There is been excessive serosanguineous drainage, the cartridge is full and the dressing is no longer adhering to the skin. Patient's most recent surgery was completed by Dr. Tomy Perkins at [place]. There is no active drainage from the wound bed at this time there was considerable moisture around the surgical site. It is well approximated without erythema or warmth. Associated symptoms: Deny chest pain, fever(s) or rash Review of Systems General: Reports: 10 or more systems reviewed and unremarkable except in HPI and below Const: Denies: fever(s), chills, change in appetite, change in weight, fatigue or malaise Eyes: Denies: change in vision, eye discomfort, eye discharge or eye redness ENMT: Denies: throat pain, enlarged tonsils, odynophagia, hoarseness, ear or mastoid pain, ear discharge, change in hearing, tinnitus, nasal discharge, nasal congestion, post nasal drip or sinus pain Card: Denies: chest pain, palpitations, irregular heart rhythm, edema, dyspnea on exertion, orthopnea or leg pain with exertion Resp: Denies: dyspnea, productive cough, non-productive cough, wheezing, stridor or chest congestion GI: Denies: abdominal pain, nausea, vomiting, dysphagia, diarrhea, constipation, bloating, GI cramping or hematochezia : Denies: flank pain, difficulty voiding, dysuria, urinary frequency, urinary urgency, urinary hesitancy, oliguria or hematuria Musc: Reports: extremity pain, joint pain, joint swelling and other (Surgical site drainage); Denies: neck pain, back pain, joint redness, joint warmth or muscle weakness Skin/Breast: Denies: rash, pruritus, erythema, photosensitivity or new lesions Neuro: Denies: headache(s), numbness in extremities, weakness in extremities, sensory changes, lack of coordination, difficulty walking, frequent falls, dizziness, confusion, Slurred speech present, difficulty communicating thoughts, seizure-like activity or involuntary movements Endo: Denies: polyuria, polydipsia or tired all the time Oscar/Lymph: Denies: easy bruising or easy bleeding PFSH ED PFSH: Medical History Neurogenic bladder Spina bifida Surgical History H/O Spinal surgery History of foot surgery History of left hip replacement August 2022 Family History (Updated 02/18/23 @ 10:08 by Adriano Mauricio MD) Other Psychiatric illness Social History Smoking and tobacco status: current every day smoker e-cigarettes E-Cigarette Details: vaporizer device and with nicotine Second hand smoke exposure: Yes Alcohol intake: never Substance/Drug Use: current Substance/Drug use frequency: daily Physical Exam Const: COMMON NORMALS: no acute distress, patient oriented x3 and alert GENERAL APPEARANCE: cooperative ORIENTATION/CONSCIOUSNESS: Yes awake, Yes oriented to person, Yes oriented to place and Yes oriented to time HENMT: COMMON NORMALS: normocephalic and atraumatic HEAD & SCALP: normocephalic and atraumatic FACE & SINUS: normal facial exam MOUTH: Normal oral and palatal mucosa present THROAT: posterior oropharynx normal Eye: COMMON NORMALS: Equal, round and reactive pupils present, EOMs intact bilaterally, conjunctivae normal and no scleral icterus GENERAL EYE: appearance normal, both eyes and all related structures ALIGNMENT: Yes alignment normal PERIORBITAL: periorbital findings normal CONJUNCTIVA: Yes conjunctivae normal PUPIL: Yes Equal, round and reactive pupils present Neck/C-Spine: COMMON NORMALS: full ROM GENERAL: Yes normal visual inspection Lymph: LYMPHATIC: no lymphadenopathy noted Chest: COMMONS NORMALS: normal inspection of the chest Breast/axilla inspection: Yes no chest deformity, asymmetry, normal contours, no nodules, masses, tenderness Resp: COMMON NORMALS: normal respiratory effort, No retractions, No use of accessory muscles and clear to auscultation bilaterally EFFORT & INSPECTION: Yes able to speak in complete sentences and Yes symmetric chest movement AUSCULTATION: clear to auscultation bilaterally Cardio: COMMON NORMALS: regular rate, regular rhythm and Peripheral pulses 2+ throughout RATE: regular rate RHYTHM: regular rhythm PERIPHERAL PULSES: Peripheral pulses 2+ throughout GI: COMMON NORMALS: Normal to inspection, nondistended, normoactive bowel sounds present, Soft to palpation, non-tender and No hepatosplenomegaly present INSPECTION: Yes normal to inspection AUSCULTATION: Yes normoactive bowel sounds PALPATION: Yes Soft to palpation and Yes No hepatosplenomegaly present RECTAL EXAM: deferred Extremity: COMMON NORMALS: normal to inspection GENERAL: Yes normal exam except as noted Neuro: COMMON NORMALS: patient oriented x3 SENSORIUM/ORIENTATION: Yes alert, Yes oriented to person, Yes oriented to place and Yes oriented to time CRANIAL NERVES: Yes CN normal except as noted Psych: COMMON NORMALS: mental status grossly normal, Normal thought process present, cooperative, activity/motor behavior normal, denies homicidal ideation and denies suicidal ideation THOUGHT PROCESS: Normal thought process present Skin: COMMON NORMALS: no rashes or lesions noted, no wounds and turgor normal GENERAL SKIN EXAM: no rashes or lesions noted and turgor normal Course Vital Signs: Vital signs: Vital Signs Temperature 97.9 F 03/05/23 10:50 Pulse Rate 106 H 10/07/23 10:50 Respiratory Rate 16 03/05/23 10:50 Blood Pressure 117/91 03/05/23 10:50 Pulse Oximetry 98 03/05/23 10:50 Oxygen Delivery Me thod Room Air 03/05/23 10:50 MDM - Extremity (Nontraumatic) Medical Decision Making Patient presents for wound care evaluation. Patient previously treated at [place] by Dr. Tomy Chand I did reach out to [facility]. Patient is going to be discharged home with a dry dressing. She needs to change this twice a day or as needed. She needs to observe for signs of infection which would include redness warmth purulent drainage from the surgical site. Currently it serosanguineous. Attempted to get through to the orthopedic team at [facility] but was unsuccessful after multiple attempts. Patient further states that she is not following up with them due to the financial burden of getting to [place] every week. She has establish care with a primary care provider here who is going to be managing the wound and postop checks. Instructions from the orthopedic team in writing were weight-bear flatfoot with no more than 20 pounds on the left lower extremity Abduction brace/pillow at all times Walker or crutch walking She is supposed to be taking Cipro 750 mg twice daily for 6 weeks She is supposed to be taking aspirin 81 mg twice daily for 30 days Currently she has follow-up with the orthopedic team on March 11 at 2:40 PM. Patient states she is not going to be meeting with them but has additional follow-up scheduled this week with her PCP. Patient is to follow-up with them but may return here for new concerning or worsening symptoms. All questions answered No radiology studies performed this visit Discharge Plan Discharge Patient Disposition: Home Clinical Impression: Encounter for post surgical wound check, Drainage from wound Condition: Stable Prescriptions: No Action gabapentin 300 mg capsule 900 mg PO TID Flexeril 10 mg Tablet 10 mg PO TID PRN (Reason: Muscle Spasm) tizanidine 2 mg Tablet 2 mg PO DAILY PRN (Reason: Muscle Spasm) Cipro 750 mg Tablet 750 mg PO BID Mobic 15 mg Tablet 15 mg PO QAM hydroxyzine HCl 50 mg Tablet See Rx Instructions .ROUTE .COMPLEX Rx Instructions: 50mg po bid and may take one extra tab if needed oxycodone 15 mg Tablet 15 mg PO .EVERY 3 HOURS PRN (Reason: Pain) Vitamin D2 1,250 mcg (50,000 unit) Capsule 50,000 unit PO Q7D Rx Instructions: on tue BuSpar 15 mg Tablet 15 mg PO DAILY Discharge Orders: Discharge ED (Routine); Ordered 03/05/23 Ordered By: Brennan Sumner Referrals: Scarlet Lara FNP [Primary Care Provider] - Discharge Diet: Advance as tolerated Discharge Activity: Resume usual activity Patient Instructions: Opioid Safety, Pain Management Activity Restrictions/Additional Instructions: You have a follow-up appointment on March [address] Tomy Chand at [facility] orthopedics. this appointment is at 2:40 PM. If you are not going to attend, you probably need to call the clinic again. They can be reached at [phone] You are to remain weight bearing of less than 20 pounds body weight with a flatfoot on the left lower extremity You are to use a abduction pillow/brace at all times Or to be using walker or crutches at all times You need to watch the surgical site closely. Currently your drainage looks like serous sanguinous meaning mix between the normal cellular fluid and blood. If your surgical site begins to turn red or the drainage changes or you develop heat in the area you need to be rechecked. You are supposed to be taking Cipro 750 mg twice a day for 6 weeks according to infectious disease note at [place]. Should also be taking aspirin 81 mg twice a day for 30 days You need to call the [facility] orthopedic clinic or your primary care doctor on Tuesday to discuss further wound management. Coding Level of Care Code ED Elementary [employer] Tutor for [facility] [employer]
--- NOTE | 2023-03-05 11:26 | PC.PHAR ---
pt brought in her medication bottles-pt didnt bring in tizanidine bottle but states this was a reg med she was taking before being in the hospital-states not had in 2 weeks-pt states she was on buspar 5mg bid but states the hospital increased to 15mg daily pt states she forgot to bring that bottle also-
[2023-03-05 13:00] VITALS: RESP 20
[2023-03-05] MEDS: oxyCODONE-APAP 5-325 mg Tablet 1 TAB PO (13:00)
== END 2023-03-05 13:33 | disposition home or self-care (01) ==
PROVIDERS: Emergency Provider Nurse Practitioner; PCP Nurse Practitioner Family
DX: Z47.89 Encounter for other orthopedic aftercare (principal); Q05.9 Spina bifida, unspecified; Z96.642 Presence of left artificial hip joint; F17.290 Nicotine dependence, other tobacco product, uncomplicated
CPT/HCPCS: 99283

== ENCOUNTER → 2023-03-22 15:38 | Outpatient (BNVA) | payer MEDICAID, SELFPAY | PROVIDERS: PCP Nurse Practitioner Family; Visit Provider Nurse Practitioner Family | DX: T81.49XA Infection following a procedure, other surgical site, initial encounter (principal); Y83.8 Other surgical procedures as the cause of abnormal reaction of the patient, or of later complication, without mention of misadventure at the time of the procedure; Z96.642 Presence of left artificial hip joint | CPT/HCPCS: 87070; 87075; 87077; 87184; 87205 ==